=== PATIENT | female | born 1975 | race Caucasian/White ===

== ENCOUNTER → 2018-01-11 06:51 | Outpatient (CLI) | payer BC, SELFPAY ==
[2018-01-11 07:29] LABS: Eosinophils # 0.3 K/mm3 (0.0-0.4); Hematocrit 42.1 % (37.0-47.0); Lymphocytes # 1.6 K/mm3 (0.7-4.5); Lymphocytes % 38.3 % (10-50); Mean Corpuscular HGB Conc 33.3 g/dL (31.8-35.4); Mean Corpuscular Hemoglobin 29.3 pg (27.0-31.2); Mean Corpuscular Volume 87.9 fl (81-99); Mean Platelet Volume 6.6 fl (7.4-10.4); Monocytes # 0.3 K/mm3 (0.1-1.0); Monocytes % 7.8 % (1.7-9.3); Neutrophils # 1.9 K/mm3 (1.8-7.8); Platelet Count 218 K/mm3 (142-424); Red Blood Count 4.79 M/mm3 (4.20-5.40); Red Cell Distribution Width 12.3 % (11.5-17.5); White Blood Count 4.1 K/mm3 (4.8-10.8)
[2018-01-11 11:24] LABS: Alanine Aminotransferase 18 U/L (12-78); Albumin/Globulin Ratio 1.3 (1.1-1.8); Alkaline Phosphatase 63 U/L (46-116); Anion Gap 14.1 mEq/L (5-15); Aspartate Amino Transferase 15 U/L (15-37); Bilirubin,Total 0.4 mg/dL (0.2-1.0); Blood Urea Nitrogen 10 mg/dL (7-18); Calcium 8.8 mg/dL (8.5-10.1); Carbon Dioxide 28 mmol/L (21.0-32.0); Chloride 102 mmol/L (98-107); Cholesterol 174 mg/dL (140-200); Creatinine,Serum 0.67 mg/dL (0.55-1.02); Estimated Glomerular Filt Rate 96 ml/min (>60); GFR (African American) 116 ML/MIN (>60); Globulin 3.2 gm/dl (1.3-3.2); Glucose 82 mg/dL (74-106); HDL Cholesterol 89 mg/dL (29-89); LDL Cholesterol 75 mg/dL (0-130); Potassium 4.1 mmoL/L (3.5-5.1); Sodium 140 mmol/L (136-145); Total Protein,Serum 7.2 gm/dL (6.4-8.2); Triglycerides 49 mg/dL (30-200); VLDL Cholesterol 10 mg/dL (0-40)
== END ==
PROVIDERS: PCP Family Medicine; Visit Provider Nurse Practitioner Obstetrics & Gynecology
DX: Z01.419 Encounter for gynecological examination (general) (routine) without abnormal findings (principal)
CPT/HCPCS: 36415; 80053; 80061; 85025

== ENCOUNTER → 2018-11-07 10:13 | Outpatient (CLI) | payer BC, SELFPAY ==
--- NOTE | 2018-11-07 10:15 | MM_ITS ---
PROCEDURE: MM DIG SCREENING MAMM BI W/CAD CLINICAL INDICATION: Routine Screening Mammogram There is a history of breast cancer patient's mother diagnosed in her 40s COMPARISON: No exams were available for comparison TECHNIQUE: Standard CC and MLO images were obtained. R2 CAD reviewed. FINDINGS: Moderate diffuse fibroglandular densities are seen in both breasts and the findings are bilateral and symmetrical. There is no suspicious lesion and no suspicious microcalcifications. IMPRESSION: Moderate breast density with no suspicious lesions seen BI-RAD Category: 1 Negative FOLLOW-UP: 1YR 1 Year Follow-up (A letter has been sent to the patient regarding results of the study.) Dictated by: Dr. Stevie Eng MD 11/16/2018 08:[address] Stevie Eng MD in [place] 11/16/2018 08:17
== END ==
PROVIDERS: PCP Family Medicine; Visit Provider Nurse Practitioner Obstetrics & Gynecology
DX: Z12.31 Encounter for screening mammogram for malignant neoplasm of breast (principal)
CPT/HCPCS: 77067

== ENCOUNTER → 2019-01-10 07:14 | Outpatient (CLI) | payer BC, SELFPAY ==
--- NOTE | 2019-01-10 | CA_ITS ---
APPROVED REPORT Exam: Exercise Treadmill Technologist: Mariza Bangura, Ht: 5 ft 4 in Wt: 145 lbs BSA: 1.71 m2 HR: 72 bpm BP: 125/76 mmHg Rhythm: NSR Medical History Medical History: HTN Medications: Lisinopril,,,,, Vit D,,,,, Ibuprofen,,,,, Allergies: No known drug allergies Cardiac Risk Factors: FHX of CAD, HTN Stress Test Details Test: Tim HR Resting HR: 79 bpm Max Heart Rate (APMHR): 176 bpm Max HR Achieved: 169 bpm Target HR (85% APMHR): 149 bpm % of APMHR: 96 Recovery HR: 114 bpm BP Resting BP: 125.0/76.0 mmHg Max BP: 148.0/80.0 mmHg Recovery BP: 164.0/89.0 mmHg ECG Clinical Reason for Termination: Dyspnea Exercise duration: 10:03 min Highest Stage Achieved: Exercise capacity: 12.8 METs Stress ECG Conclusion PATIENT EXERCISED ON TIM PROTOCOL FOR 10:00. MAX HEART RATE 169 BPM WHICH IS 112% OF PM FOR AGE. METS = 12.8. TEST STOPPED DUE TO SOA. RARE PVC. < 1.5MM ST SEGMENT CHANGES. NEGATIVE TEST Test Summary REST . . . . . . . Standing REST . . . . . . . Sitting REST 06:25 0.0 0.0 79 . 125/ 76 . . Stage 1 01:00 10.0 1.7 105 . . . . Stage 1 02:00 10.0 1.7 116 . . . . Stage 1 03:00 10.0 1.7 114 . . . . Stage 2 01:00 12.0 2.5 123 . . . . Stage 2 02:00 12.0 2.5 137 . . . . Stage 2 03:00 12.0 2.5 138 . 140/ 80 . . Stage 3 01:00 14.0 3.4 146 . . . . Stage 3 02:00 14.0 3.4 149 . . . . Stage 3 03:00 14.0 3.4 155 . 148/ 80 . . Stage 4 01:00 16.0 4.2 167 . . . . Stage 4 01:03 16.0 4.2 167 . . . Stop exercise at 10:03 RECOVERY 01:00 0.0 0.0 141 . . . . RECOVERY 02:00 0.0 0.0 111 . . . . RECOVERY 03:00 0.0 0.0 101 . . . . RECOVERY 04:00 0.0 0.0 87 . . . . RECOVERY 05:00 0.0 0.0 87 . 145/ 72 . . RECOVERY 06:00 0.0 0.0 0 . 145/ 72 . . RECOVERY 06:24 0.0 0.0 0 . 145/ 72 . . Electronically signed by : Sagar Connell, 01/10/2019 15:34:18
--- NOTE | 2019-01-10 07:16 | NM_ITS ---
APPROVED REPORT Exam: Nuclear Stress Test Indication: C.P., HTN, FM.HX., SOB, DARIN Patient Location: Outpatient Stress Tech: Karen Bangura [place] Tech:Guadalupe Avina, ARRT, RT (R)(N) Ht: 5 ft 4 in Wt: 145 lbs Bra Size: 34B HR: 72 bpm BP: 125/76 mmHg BSA: 1.71 m2 BMI: 24.8 History: C.P., HTN, FM.HX., SOB, FATIBRADLEY Procedure: Patient exercised on Tim protocol 10:00 minutes and sec, resting heart rate 72 bpm, resting blood pressure 125/76 mmHg, with exercise maximum heart rate achived was 169 bpm which is Greater than 85 % of the maximum predicted heart rate and blood pressure was 164/89 mmHg. Test was stopped due to Shortness of breath. Patient has Good exercise capacity, achieved 12.8 METs of workload on treadmill, the blood pressure response to exercise was Adequate. PT C/O SOB Electrocardiogram Resting electro cardiogram showed sinus rhythm, with exercise there is less than 1.[address] segment depression noted from the baseline EKG. The EKG portion of the exercise Myoview is negative for ischemia. Cardiac Stress and Resting SPECT Images: Cardiac Stress and Resting SPECT images were obtained using technetium 99m Myoview 32.1 mCi stress and 10.35 mCi at rest. Gated SPECT with analysis of segmental wall motion and calculation of the ejection fraction also done. Cardiac stress and resting SPECT images show uniform myocardial activity without segmental perfusion abnormality, computer derived ejection fraction is over 65% with no regional wall motion abnormality, right ventricle is normal size and contractility. Conclusion: 1. The EKG portion of the exercise Myoview is negative for ischemia, patient has good exercise capacity achieved 12.8 mets of workload on treadmill, the blood pressure response to exercise was adequate, there was no exercise-induced chest discomfort. 2. No scintigraphic evidence of reversible ischemia seen, computer derived ejection fraction is over 65% with no regional wall motion abnormality, right ventricle is normal size and contractility. 3. Normal exercise sestamibi study. Electronically signed by : Sagar Connell, 01/10/2019 15:37:23
--- NOTE | 2019-01-10 07:58 | HMH.ITSHM ---
Current Home Medications as stated by this patient Arelis Matthews or cash posting representative. []LISINOPRIL VITAMIN D IBUPOFEN
== END ==
PROVIDERS: PCP Family Medicine; Visit Provider Family Medicine
DX: R07.9 Chest pain, unspecified (principal)
CPT/HCPCS: 78452; 93017; A9502

== ENCOUNTER → 2020-02-10 10:09 | Outpatient (CLI) | payer BC, SELFPAY ==
[2020-02-10 11:12] LABS: Eosinophils # 0.1 K/mm3 (0.0-0.4); Eosinophils % 3.7 % (0.1-12.0); Hematocrit 43.9 % (37.0-47.0); Hemoglobin 14.7 g/dL (12.2-16.2); Lymphocytes # 1.2 K/mm3 (0.7-4.5); Lymphocytes % 34.2 % (10-50); Mean Corpuscular HGB Conc 33.5 g/dL (31.8-35.4); Mean Corpuscular Hemoglobin 30.3 pg (27.0-31.2); Mean Corpuscular Volume 90.5 fl (81-99); Mean Platelet Volume 7.3 fl (7.4-10.4); Monocytes # 0.3 K/mm3 (0.1-1.0); Monocytes % 7.9 % (1.7-9.3); Neutrophils # 1.9 K/mm3 (1.8-7.8); Neutrophils % 53.1 % (37.0-80.0); Platelet Count 271 K/mm3 (142-424); Red Blood Count 4.86 M/mm3 (4.20-5.40); Red Cell Distribution Width 12.9 % (11.5-17.5); White Blood Count 3.6 K/mm3 (4.8-10.8)
[2020-02-11 13:44] LABS: Covid-19 Nasal PCR Sendout Lex POSITIVE
== END ==
PROVIDERS: PCP Nurse Practitioner; Visit Provider Nurse Practitioner
DX: Z20.828 Contact with and (suspected) exposure to other viral communicable diseases (principal); U07.1 COVID-19
CPT/HCPCS: 36415; 85025; 87275; 87276; U0004

== ENCOUNTER 2020-10-04 10:54 | Emergency (ER) | payer BC, SELFPAY ==
--- NOTE | 2020-10-04 11:06 | XR_ITS ---
PROCEDURE: XR HIP LT 2-3V W/PELVIS CLINICAL INDICATION: PAIN COMPARISON: No exams were available for comparison FINDINGS: No fracture or dislocation is evident. No significant degenerative change. No lytic or blastic change. Unremarkable soft tissues. IMPRESSION: No acute findings. Dictated by: David Widler MD 10/04/2020 11:52 David Wilder MD in [place] 10/04/2020 11:52
[2020-10-04 11:30] VITALS: BP 137/77; PULSE 83; RESP 19; TEMP 36.8; O2SAT 97; BMI 24.0
--- NOTE | 2020-10-04 12:05 | HMH.EDUTC ---
[facility] [place] Clinical Impression: Contusion, hip and thigh Qualifiers: Encounter type: initial encounter Laterality: left Qualified Code(s): S70.02XA - Contusion of left hip, initial encounter; S70.12XA - Contusion of left thigh, initial encounter Disposition: Home, Self-Care Condition on Discharge: Good Instructions: Contusion, DI for Contusion, DI for Hip Pain Additional Instructions: *weight bearing as tolerated *RICE, Rest the extremity, Ice 15-20 minutes 3-4 times daily, Compress- wear the vamsi wrap as discussed as much as possible to help reduce swelling and pain, Elevate the extremity when at rest Elevate when resting *Etodolac as prescribed every 8 hours as needed for pain an inflammation. If need something more can take Tylenol in between doses of Ibuprofen to help Immediately follow up with your family doctor for new or worsening of symptoms, or no noticeable improvement over the next 3-5 days Return if needed Straight to ER if any life threatening symptoms Prescriptions: Etodolac 200 mg PO Q8HP PRN #20 cap PRN Reason: Moderate Pain Transmission Status: Pending to [id number] Referrals: Avery Waller MD [Primary Care Provider] - As needed Time of Disposition: 12:14 Medical Decision Making - Jame Inquiry Pt receiving controlled substance: No Jame was queried for this patient: No Vital Signs: 10/04/20 11:30 Temperature 98.2 F Temperature Source Oral Pulse Rate [Right Brachial] 83 Respiratory Rate 19 Blood Pressure [Right Arm] 137/77 Blood Pressure Mean [Right Arm] 97 Blood Pressure Source [Right Arm] Automatic Cuff Blood Pressure Position [Right Arm] Sitting 02 Sat by Pulse Oximetry 97 Oxygen Delivery Method Room Air - Radiology Data #1 Image(s): Hip (with pelvis) Image Reviewed: Yes I have reviewed radiologist's interpretation Preliminary Findings: No Fracture Seen No acute findings. [facility] [place] HPI - General Stated complaint: ao 10/03/20 @ 2000 injury Lt hip Time Seen by Provider: 10/04/20 12:05 Mode of Arrival: Ambulatory Source of Information: Patient Limitations: No Limitations Description of Symptoms (Recalled from Triage Doc. by RN): PATIENT C/O LEFT HIP PAIN AFTER SHE WAS THROWN OFF OF A DONKEY Sunday HEENT Symptoms (Recalled from RN notes): No Resp Symptoms (Recalled from RN notes): No Skin Symptoms (Recalled from RN notes): No MS Symptoms (Recalled from RN notes): Yes Functional Status (Recalled from RN notes): WNL - History of Present Illness Provider Complaint: Patient states that she was riding on her Donkey last night when it went to funez her off and she jumped off and landed on her left side/hip area States that ever since she has been sore and hurts when she tries to sit on her left hip area so she came in to get checked States that she hasnt got any bruising but feels sore like she may have some deep bruising - Related Data Previous Rx's Medication Instructions Recorded phentermine 37.5 mg tablet 37.5 mg PO DAILY #30 tab 10/14/19 Etodolac 200 mg PO Q8HP PRN #20 cap 10/04/20 Allergies Allergy/AdvReac Type Severity Reaction Status Date / Time No Known Allergies Allergy Verified 08/20/19 15:38 - Worker's Comp Is this a Worker's Comp case?: No [facility] History - Hepatitis A Screen Drug use history?: No High risk sexual behaviors?: No History of sexually transmitted infection?: No Currently employed?: No Childcare worker?: No Do you have indoor plumbing?: Yes Do you have electricity?: Yes Attestation statement:: This patient has been screened for Hepatitis A risk factors. I have reviewed the patient's past medical history: Yes Other Surgeries: Yes: BSO, Hysterectomy-Total, Other Amputation: No Fractures: No Comment: tvt - Social History Smoking Status: Never smoker Alcohol Intake: never Occupational Status: other Family Hx:: No significant family history ROS Obtained: Yes All systems reviewed & no additional compl
[2020-10-04 12:19] VITALS: BP 137/77; PULSE 83; RESP 19; TEMP 36.8; O2SAT 97
== END 2020-10-04 12:28 | disposition home or self-care (01) ==
PROVIDERS: Emergency Provider Nurse Practitioner; PCP Family Medicine
DX: S70.02XA Contusion of left hip, initial encounter (principal); S70.12XA Contusion of left thigh, initial encounter; V80.018A Animal-rider injured by fall from or being thrown from other animal in noncollision accident, initial encounter; Y92.73 Farm field as the place of occurrence of the external cause
CPT/HCPCS: 73502; 99202; G0463

== ENCOUNTER → 2022-02-16 09:18 | Outpatient (CLI) | payer BC, SELFPAY ==
[2022-02-16 18:40] LABS: Basophils % 0.9 % (0.1-2.0); Eosinophils # 0.2 K/mm3 (0.0-0.4); Eosinophils % 3.6 % (0.1-12.0); Hematocrit 44.2 % (37.0-47.0); Hemoglobin 14.2 g/dL (12.2-16.2); Lymphocytes # 1.3 K/mm3 (0.7-4.5); Lymphocytes % 32.5 % (10-50); Mean Corpuscular HGB Conc 32.1 g/dL (31.8-35.4); Mean Corpuscular Hemoglobin 28.9 pg (27.0-31.2); Mean Corpuscular Volume 90.1 fl (81-99); Mean Platelet Volume 8.7 fl (7.4-10.4); Monocytes # 0.3 K/mm3 (0.1-1.0); Monocytes % 6.2 % (1.7-9.3); Neutrophils # 2.4 K/mm3 (1.8-7.8); Neutrophils % 56.9 % (37.0-80.0); Platelet Count 328 K/mm3 (142-424); Red Blood Count 4.91 M/mm3 (4.20-5.40); Red Cell Distribution Width 12.9 % (11.5-17.5); White Blood Count 4.1 K/mm3 (4.8-10.8)
[2022-02-16 18:45] LABS: Alanine Aminotransferase 16 U/L (12-78); Albumin Level 4.2 g/dl (3.5-5.0); Albumin/Globulin Ratio 1.6 (1.1-1.8); Alkaline Phosphatase 99 U/L (38-126); Anion Gap 10.6 mEq/L (5-15); Aspartate Amino Transferase 26 U/L (14-36); Bilirubin,Total 0.4 mg/dl (0.2-1.3); Blood Urea Nitrogen 19 mg/dl (7-17); Calcium 9.4 mg/dl (8.4-10.2); Carbon Dioxide 29 mmol/L (22.0-30.0); Chloride 105 mmol/L (98-107); Chol/HDL Ratio 2.4 (1-3.5); Cholesterol 207 mg/dl (140-200); Estimated Glomerular Filt Rate 77 ml/min (>60); GFR (African American) 93 ML/MIN (>60); Globulin 2.6 g/dL (1.3-3.2); Glucose 85 mg/dl (74-100); HDL Cholesterol 88 mg/dl (40-60); Potassium 4.6 mmoL/L (3.5-5.1); Sodium 140 mmol/L (136-145); Total Protein,Serum 6.8 g/dl (6.3-8.2); Triglycerides 46 mg/dl (30-150); VLDL Cholesterol 9 mg/dL (0-40)
[2022-02-16 18:58] LABS: Direct LDL Cholesterol 89.52 mg/dL (100-129)
[2022-02-16 19:03] LABS: 25-OH Vitamin D, Total 20.9 ng/mL (30-100)
[2022-02-16 19:16] LABS: Thyroid Stimulating Hormone 1.61 uIU/mL (0.465-4.68)
[2022-02-16 19:27] LABS: Hemoglobin A1C 5.3 % (4.0-6.0)
[2022-02-16 19:35] LABS: Vitamin B12 579 pg/mL (239-931)
== END ==
LOC: LAB.DROPOF 02-17 09:19
PROVIDERS: PCP Nurse Practitioner; Visit Provider Nurse Practitioner
DX: I10 Essential (primary) hypertension (principal); E55.9 Vitamin D deficiency, unspecified; Z13.1 Encounter for screening for diabetes mellitus; Z13.220 Encounter for screening for lipoid disorders
CPT/HCPCS: 80053; 80061; 82306; 82607; 83036; 84443; 85025

== ENCOUNTER → 2022-04-24 23:41 | Outpatient (CLI) | payer BC, SELFPAY ==
[2022-04-24 19:27] LABS: Alanine Aminotransferase 22 U/L (12-78); Albumin Level 4.3 g/dl (3.5-5.0); Albumin/Globulin Ratio 1.7 (1.1-1.8); Alkaline Phosphatase 64 U/L (38-126); Anion Gap 4.1 mEq/L (5-15); Aspartate Amino Transferase 27 U/L (14-36); Bilirubin,Total 0.5 mg/dl (0.2-1.3); Blood Urea Nitrogen 15 mg/dl (7-17); Calcium 8.7 mg/dl (8.4-10.2); Carbon Dioxide 29 mmol/L (22.0-30.0); Chloride 109 mmol/L (98-107); Estimated Glomerular Filt Rate 107 ml/min (>60); GFR (African American) 129 ML/MIN (>60); Globulin 2.5 g/dL (1.3-3.2); Glucose 93 mg/dl (74-100); Potassium 4.1 mmoL/L (3.5-5.1); Sodium 138 mmol/L (136-145); Total Protein,Serum 6.8 g/dl (6.3-8.2)
[2022-04-24 19:55] LABS: Thyroid Stimulating Hormone 1.49 uIU/mL (0.465-4.68)
[2022-04-26 08:16] LABS: Estradiol 16.1 pg/mL (.); LH 34.8 mIU/mL (.)
[2022-04-28 22:30] LABS: Estrogen 31 pg/mL (.)
== END ==
LOC: LAB.DROPOF 23:41
PROVIDERS: PCP Nurse Practitioner; Visit Provider Nurse Practitioner
DX: I10 Essential (primary) hypertension (principal); E55.9 Vitamin D deficiency, unspecified; N95.1 Menopausal and female climacteric states; E66.9 Obesity, unspecified; Z68.27 Body mass index [BMI] 27.0-27.9, adult
CPT/HCPCS: 80053; 82306; 82670; 82672; 83001; 83002; 84443

== ENCOUNTER 2023-07-02 15:29 | Outpatient (CLI) | payer BC, SELFPAY ==
--- NOTE | 2023-07-02 15:30 | MM_ITS ---
PROCEDURE INFORMATION: Exam: MG Bilateral Screening 3D Mammography Exam date and time: 07/02/2023 3:35 PM Age: 48 years old Clinical indication: Screening examination TECHNIQUE: Imaging protocol: Bilateral Screening tomosynthesis and 2D mammography including computer-aided detection (CAD) when performed. COMPARISON: MG MM DIG SCREENING MAMM BI W/CAD 11/07/2018 10:23 AM FINDINGS: MAMMOGRAPHY: Breast composition: There are scattered areas of fibroglandular density. Mass: None. Architectural distortion: None. Calcifications: No suspicious calcifications. Asymmetric density: None. Skin thickening: None. Axillary adenopathy: None. IMPRESSION: No mammographic evidence of malignancy. Annual screening is recommended unless otherwise clinically indicated. ASSESSMENT: BI-RADS Category 1: Negative
== END 2023-07-02 23:59 | disposition home or self-care (01) ==
LOC: RAD 15:30
PROVIDERS: PCP Family Medicine; Visit Provider Nurse Practitioner Obstetrics & Gynecology
DX: Z12.31 Encounter for screening mammogram for malignant neoplasm of breast (principal)
CPT/HCPCS: 77063; 77067

== ENCOUNTER 2023-09-03 08:31 | Outpatient (CLI) | payer BC, SELFPAY ==
--- NOTE | 2023-09-03 08:59 | CT_ITS ---
FINAL REPORT TECHNIQUE: Axial CT images of the abdomen and pelvis were obtained before and after the administration of IV contrast. Oral contrast was administered.This study was performed with techniques to keep radiation doses as low as reasonably achievable (ALARA). Individualized dose reduction techniques using automated exposure control or adjustment of mA and/or kV according to the patient''s size were employed. CLINICAL HISTORY: left abdomen pain FINDINGS: Abdomen: The lung bases are clear. The heart is normal in size. The liver has an unremarkable appearance, without evidence of mass or biliary duct dilatation. . The spleen is unremarkable. No adrenal masses present. The pancreas has an unremarkable appearance. The kidneys enhance normally. The aorta is normal in caliber. There is no free fluid or adenopathy. No mass or abnormal fluid collection is seen. Precontrast images demonstrate no evidence of nephrolithiasis. Pelvis: The appendix is normal. Patient is status post hysterectomy. The urinary bladder is unremarkable. No inflammatory process is seen. There is no evidence of mass or adenopathy. There is no evidence of bowel obstruction. IMPRESSION: No evidence of acute intra-abdominal process. Reviewed, Interpreted and Dictated by Rodolfo Paige III, MD Transcribed by Diana Rivera Authenticated and [facility]
[2023-09-03 09:04] LABS: Blood Urea Nitrogen 12 mg/dl (7-17); Estimated Glomerular Filt Rate 76 ml/min (>60); GFR (African American) 92 ML/MIN (>60)
[2023-09-03] MEDS: SODIUM CHLORIDE 0.9% 10ML SYR (RAD ONLY) 10 ML IV (09:36)
[2023-09-03] MEDS: IOPAMIDOL-370 (76%);100ML BOTTLE 75 ML IV (09:36)
== END 2023-09-03 23:59 | disposition home or self-care (01) ==
LOC: RAD 08:34
PROVIDERS: PCP Nurse Practitioner; Visit Provider Family Medicine
DX: R10.9 Unspecified abdominal pain (principal)
CPT/HCPCS: 36415; 74178; 82565; 84520; Q9967

== ENCOUNTER 2024-10-31 17:37 | Outpatient (CLI) | payer BC, SELFPAY ==
--- OUTSIDE RECORDS SUMMARY | 2023-08-30 12:15 | XMS_ITS | Continuity of Care Document ---
Author Organization [facility] Address [address] [place] [address] Phone Care Team Providers Care Manufacturer Representative Name Role Phone Osei Flood Unavailable Unavailab [...] doses - Active Procedures Procedure Date Office/outpatient visit,[facility] 2023 Advance Directives Directive Yes / No Effective Date File Name No Information Encounters Encounter Description Practice Location Reason(s) For Visit Diagnoses Date Provider Providers Copied on Encounter Office[facility]pat ient visit[place] [place] [facility] [place], [address] [place], [address], tel:[phone] [facility] Carpal tunnel syndrome, right upper limb 4 Alvaro Franz. [address] [place], [address], . tel:[phone] Referring Provider: Thomas Little, [address] [address], [place], [address] . tel:[phone] Family History Family Member Type Diagnosis Age At Onset Father Problem (finding) Congenital heart diseas e Father Problem (finding) Diabetes mellitus Father Problem (finding) Hypertension Payers Payer name Insurance type Covered constitution party ID [place] sims(magda) [place] - [id number] Social History Type Description Quantity Date Captured [...] 65.771 kg (145.00 lbs) 24.8 9 kg/m eter (2) Chief Complaint And Reason For Visit [...]
--- OUTSIDE RECORDS SUMMARY | 2024-10-31 17:40 | XMS_ITS | Clinical Summary ---
Author Organization [facility] Address [address] [place] [phone] Phone Care Team Providers Care Jukebox Operator Name Role Phone Unavailable Primary Care Provider Unavailabl e Allergies No known active allergies Medications lisinopriL (PRINIVIL;ZESTRI L) 10 mg Oral Tablet Take 10 mg by mouth daily. Active Surgical History Surgery Date Site/Laterality Comments HYSTERECTOMY 03/05/2002 - 03/04/2003 Medical History Medical History Date Comments Hypertension Social History Tobacco Use Types Packs/Day Years Used Date Smoking Tobacco: Never Smokeless Tobacco: Never Alcohol Use Standard Drinks/Week Comments Never 0 (1 standard drink = 0.6 oz pur e alcohol) AUDIT-C Answer Date Recorded Frequency of Alcohol Consumption Never 05/15/2019 Average Number of Drinks Not on file 020 Frequency of Binge Drinking Not on file 05/03 Comments No Sex and Gender Information Value Date Recorded Sex Assigned at Not on file Legal Sex Female 4:20 AM EDT Gender Identity Not on file Sexual Orientation Not on file Obstetrics History Last Filed Vital Signs Vital Sign Reading Time Taken Comments Blood Pressure 122/70 05/15/2019 7:28 PM EDT Pulse 70 05/15/2019 7:28 PM EDT Temperature 36.8 C (98.3 F) 05/15/2019 7:28 PM EDT Respiratory Rate 20 05/15/2019 7:28 PM EDT Oxygen Saturation 99% 05/15/2019 7:28 PM EDT Inhaled Oxygen Concentration - - Weight 70 kg (154 lb 6.4 oz) 05/15/2019 7:28 PM EDT Height 162.6 cm (5' 4 ) 05/15/2019 7:28 PM EDT Body Mass Index 26.5 05/15/2019 7:28 PM EDT Plan of Treatment Health Maintenance Due Date Last Done Comments Annual Wellness Exam 1977 DTaP/TDaP/Td (1 - Tdap) 1993 Hepatitis B Vaccine (1 of 3 - 19+ 3-dose series) 1993 Cervical Cancer Screening 1995 Pap Smear 1995 HPV/Pap Cotest 02/11/2004 Breast Cancer Screening 2014 Cologuard 2019 Colon Cancer Screening 2019 Colonoscopy 2019 FIT 2019 Sigmoidoscopy 2019 Virtual Colonography 2019 COVID-19 Vaccine (1 - 2023-2 5 season) 2023 Pneumococcal Vaccine 50+ (1 of 1 - PCV) 02/11/2024 Zoster (1 of 2) 02/11/2024 Influenza Vaccine (#1) 2024 Meningococcal B Vaccine Aged Out No l onger eligible based on patient's age to complete this topic Insurance [address] [place], [place] [address]
[2024-10-31 18:31] LABS: Hematocrit 41.6 % (37.0-47.0); Hemoglobin 13.8 g/dL (12.2-16.2); Immature Granulocytes % 0 %; Mean Corpuscular HGB Conc 33.2 g/dL (31.8-35.4); Mean Corpuscular Hemoglobin 29.6 pg (27.0-31.2); Mean Corpuscular Volume 89.1 fl (81-99); Nucleated Red Blood Cells % 0 %; Platelet Count 254 K/mm3 (142-424); Red Blood Count 4.67 M/mm3 (4.20-5.40); Red Cell Distribution Width-SD 39.2 fL; White Blood Count 3.4 K/mm3 (4.8-10.8)
[2024-10-31 19:03] LABS: Albumin Level 4.3 g/dl (3.5-5.0); Chloride 107 mmol/L (98-107)
[2024-10-31 19:04] LABS: Potassium 4.2 mmoL/L (3.5-5.1); Sodium 139 mmol/L (136-145)
[2024-10-31 19:06] LABS: Alanine Aminotransferase 17 U/L (12-78); Albumin/Globulin Ratio 1.7 (1.1-1.8); Anion Gap 10.2 mEq/L (5-15); Aspartate Amino Transferase 29 U/L (14-36); Blood Urea Nitrogen 9 mg/dl (7-17); Carbon Dioxide 26 mmol/L (22.0-30.0); Creatinine,Serum 0.70 mg/dl (0.52-1.04); Estimated Glomerular Filt Rate 89 ml/min (>60); GFR (African American) 107 ML/MIN (>60); Globulin 2.6 g/dL (1.3-3.2); Total Protein,Serum 6.9 g/dl (6.3-8.2)
[2024-10-31 19:07] LABS: Alkaline Phosphatase 74 U/L (38-126); Bilirubin,Total 0.5 mg/dl (0.2-1.3); Calcium 8.8 mg/dl (8.4-10.2); Cholesterol 214 mg/dl (140-200); Glucose 92 mg/dl (74-100); HDL Cholesterol 95 mg/dl (40-60); Triglycerides 60 mg/dl (30-150)
[2024-10-31 19:26] LABS: 25-OH Vitamin D, Total 25.3 ng/mL (30-100)
[2024-10-31 19:38] LABS: Thyroid Stimulating Hormone 2.00 uIU/mL (0.465-4.68)
[2024-10-31 19:58] LABS: Hepatitis C Ab Qual. W/ RFX NEGATIVE (Negative)
[2024-10-31 20:00] LABS: Vitamin B12 > 1000 pg/mL (239-931)
[2024-11-02 08:15] LABS: Hepatitis B Surface Antigen Negative (Negative)
== END 2024-10-31 23:59 | disposition home or self-care (01) ==
LOC: LAB 17:38
PROVIDERS: PCP Nurse Practitioner; Visit Provider Nurse Practitioner
DX: Z11.59 Encounter for screening for other viral diseases (principal); E55.9 Vitamin D deficiency, unspecified; I10 Essential (primary) hypertension; E66.3 Overweight; Z79.899 Other long term (current) drug therapy
CPT/HCPCS: 80053; 80061; 82043; 82306; 82570; 82607; 84443; 85025; 86803; 87340; 87389

== ENCOUNTER 2024-11-07 15:51 | Outpatient (CLI) | payer BC, SELFPAY ==
--- OUTSIDE RECORDS SUMMARY | 2023-08-30 12:15 | XMS_ITS | Continuity of Care Document ---
Author Organization [facility] Address [address] [place] [address] Phone Care Team Providers Care Filler Machine Operator Name Role Phone Osei Flood Unavailable Unavailab le Allergies, Adverse Reactions, Alerts Substance Reaction Status Criticality No Known Allergies Active No Inform ation Medications Medication Instructions Dosage Effective Dates (start - stop) Status Comments prednisone 5 mg tablet take 6 pills x 3 days, then 4 pills x 3 days, then 2 pills x 3 days, then 2 pills every other day x 3 doses - Active Procedures Procedure Date Office/outpatient visit,[facility] 2023 Advance Directives Directive Yes / No Effective Date File Name No Information Encounters Encounter Description Practice Location Reason(s) For Visit Diagnoses Date Provider Providers Copied on Encounter Office/outpat ient visit,[facility] [place] [facility], [address] [place], [address], tel:[phone] [facility] Carpal tunnel syndrome, right upper limb 4 Alvaro Franz. [address] [place] [address], [id number], [place]. tel:[phone] Referring Provider: Thomas Little, [address] [address], [place], [address] . tel:[phone] Family History Family Member Type Diagnosis Age At Onset Father Problem (finding) Congenital heart diseas e Father Problem (finding) Diabetes mellitus Father Problem (finding) Hypertension Payers Payer name Insurance type Covered democrat ID Authoriza tion(s) [place] - [id number] Social History Type Description Quantity Date Captured Comments Alcohol Use Details No Caffeine Use Details Unknown Tobacco Use Status No Information Smoking Status Never smoker Non-Smoking Tobacco Use Details : No Details Available : No Details Available : No Details Available : No Details Available Sex Female Vital Signs Date / Time: Height Weight BMI Pulse Rate Blood Pressure Temperature Respiratory Rate Body Surface Area Head Circumference Head Circ. Percentile Wt./Kenji. Percentile BMI percentile Pulse Ox Inhaled Ox 1:14 PM 64.00 in 65.771 kg (145.00 lbs) 24.8 9 kg/m michell (2) Chief Complaint And Reason For Visit No Information Reason For Referral Reason For Referral No Information History Of Present Illness Encounter Date Complaint History Of Prese nt Illness carpal tunnel syndrome Functional Status Date Functional Assessmen t No Information Instructions Date Instruction Additional Infor mation No Information Assessments Type Assessment Date No Information Patient Care Teams Name Effective Dates (start - stop) Status Members No Information
--- OUTSIDE RECORDS SUMMARY | 2024-11-07 15:52 | XMS_ITS | Clinical Summary ---
Author Organization [facility] Address [address] [place] [phone] Phone Care Team Providers Care Team Supervisor Name Role Phone Unavailable Primary Care Provider [...] FIT 2019 Sigmoidoscopy 2019 Virtual Colonography 2019 Pneumococcal Vaccine 50+ (1 of 1 - PCV) 02/11/2024 Zoster (1 of 2) 02/11/2024 COVID-19 Vaccine (1 - 2023-2 5 season) 2024 Influenza Vaccine (#1) 2024 Meningococcal B Vaccine Aged Out No l onger eligible based on patient's age to complete this topic Insurance [address] [place], [place] [id number]
--- NOTE | 2024-11-07 16:00 | MM_ITS ---
PROCEDURE INFORMATION: Exam: MG Bilateral Screening 3D Mammography Exam date and time: 11/07/2024 3:57 PM Age: 49 years old Clinical indication: Screening examination TECHNIQUE: Imaging protocol: Bilateral Screening tomosynthesis and 2D mammography including computer-aided detection (CAD) when performed. COMPARISON: 1. MG MM DIG SCREENING MAMM BI W/CAD 07/02/2023 3:35 PM 2. MG MM DIG SCREENING MAMM BI W/CAD 11/07/2018 10:23 AM FINDINGS: MAMMOGRAPHY: Breast composition: There are scattered areas of fibroglandular density. Mass: None. Architectural distortion: None. Calcifications: No suspicious calcifications. Asymmetric density: None. Skin thickening: None. Axillary adenopathy: None. IMPRESSION: No mammographic evidence of malignancy. Annual screening is recommended unless otherwise clinically indicated. ASSESSMENT: BI-RADS Category 1: Negative.
== END 2024-11-07 23:59 | disposition home or self-care (01) ==
LOC: RAD 15:51
PROVIDERS: PCP Nurse Practitioner; Visit Provider Nurse Practitioner
DX: Z12.31 Encounter for screening mammogram for malignant neoplasm of breast (principal); R92.323 Mammographic fibroglandular density, bilateral breasts
CPT/HCPCS: 77063; 77067